=== PATIENT | male | born 1965 | race Caucasian/White ===

== ENCOUNTER 2025-01-20 05:59 | Day surgery (SDC) | payer OTHER ==
[~2025-01-20 05:59] MED LIST: ALPRAZolam 0.25 MG TAB PO PRN; ALPRAZolam 0.5 MG TAB PO PRN; HEPARIN SODIUM,PORCINE (1 ML) 2,500 UNIT in SODIUM CHLORIDE 0.9% 250 ML IRRIGATION PRN; HEPARIN SODIUM,PORCINE 10,000 UNIT in SODIUM CHLORIDE 0.9% 1,000 ML IRRIGATION PRN; NITROGLYCERIN SL TABS 0.4 MG TAB SUBLINGUAL PRN
[2025-01-20] MEDS: SODIUM CHLORIDE 0.9% 1,000 ML in EMPTY BAG 1 BAG IV SCH ×2 (06:38→16:29)
[2025-01-20] MEDS: IV FLUID CONTINUATION 1,000 ML IV ONE ×2 (06:41→16:15)
[2025-01-20] MEDS: ASPIRIN 325 MG TAB PO ONE (06:45)
[2025-01-20] MEDS: ATORVASTATIN 80 MG TAB PO ONE (06:48)
[2025-01-20] MEDS: HEPARIN SODIUM,PORCINE 10,000 UNIT in SODIUM CHLORIDE 0.9% 1,000 ML IRRIGATION ONE (07:35)
[2025-01-20] MEDS: HEPARIN SODIUM,PORCINE (1 ML) 2,500 UNIT in SODIUM CHLORIDE 0.9% 250 ML IRRIGATION ONE (07:35)
[2025-01-20] MEDS: MIDAZOLAM 2 MG/2 ML VIAL IVP ONE ×2 (07:46)
[2025-01-20] MEDS: LIDOCAINE 1% INJ 10MG/ML (20 ML MDV) SQ ONE (07:48)
[2025-01-20] MEDS: HEPARIN SODIUM 1,000 UN/ML (10ML VL) IVP ONE (07:55)
[2025-01-20] MEDS: NITROGLYCERIN 1000MCG/10ML SYRINGE INTRACORON ONE ×2 (07:58→08:42)
[2025-01-20] MEDS: TICAGRELOR 90 MG TAB PO ONE (08:22)
[2025-01-20] MEDS: IOPAMIDOL-370 100ML BTL INJ ONE ×2 (08:32→08:47)
[2025-01-20] MEDS ORDERED: ATORVASTATIN 80 MG TAB PO STA (08:58)
[2025-01-20] MEDS ORDERED: RX INFO: IV CONTRAST WAS GIVEN 1 EACH MISC MISCELLANE PRN (09:40)
[2025-01-20] MEDS ORDERED: NITROGLYCERIN SL TABS 0.4 MG TAB SUBLINGUAL PRN (09:40)
[2025-01-20] MEDS ORDERED: ZOLPIDEM 5 MG TAB PO PRN (09:40)
[2025-01-20] MEDS ORDERED: MAG HYDROX/AL HYDROX/SIMETH 30 ML CUP PO PRN (09:40)
[2025-01-20] MEDS ORDERED: ATROPINE SULFATE 0.1 MG/ML 10ML SYRINGE IV PRN (09:40)
--- NOTE | 2025-01-20 10:15 | CC ---
CARDIAC CATHETERIZATION REPORT PROCEDURES PERFORMED: 1. IFR assessment of proximal LAD and proximal and mid circumflex. 2. Intravascular ultrasound of right coronary artery. Adjunctive procedure before and after PCI. 3. PTCA and stenting of chronic distal RCA occlusion with 2 drug-eluting stents. PERFORMED BY: Dr. Deondre Joseph. ASSISTED BY: Dr. Bell. Moderate conscious sedation time was 59 minutes. Patient was administered Versed. Oxygen saturation, hemodynamics, and EKG were monitored closely. CLINICAL INFORMATION: Mr. Eder Orozco is a 59-year-old gentleman with a known history of CAD, who underwent stenting of the right coronary artery that was performed in 2007. He also has a family history of CAD, calcified coronary arteries, hypertension, and hyperlipidemia. I performed cardiac catheterization on him in November of this year and noted that the distal RCA had a chronic lesion of 95% with very sluggish flow with limited collaterals from the left system. There was moderate disease involving the proximal ostial LAD and also distal circumflex and to some extent in the proximal circumflex. I reviewed the angiograms with my colleagues and we felt that we should do IFR of the LAD and circumflex before intervention of the RCA. I called and talked to the patient about this in detail, explained to him the rationale, risks, benefits, and options. He understood all details and wished to proceed with the procedure. PROCEDURE NOTE: Under strict aseptic precautions and local anesthesia with a micropuncture needle technique, I gained access into the right femoral artery. Using a JL3.5 guide catheter of 6-Cypriot caliber and omni wire, I performed IFR of the LAD as well as circumflex after appropriate calibration and normalization. IFR of LAD was 0.94 and IFR of circumflex was 0.99. Multiple readings were obtained. I then turned my attention to the right coronary artery. I used a 0.75 left Amplatz guide catheter of 6-Cypriot caliber to cannulate the right coronary artery. I used a straight SuperCross with a long whisper wire and with this combination I crossed the lesion, wire was kept distally. The SuperCross catheter was advanced further and I exchanged it for a run- through long wire. Initial PTCA was performed with a 1.5 12 mm balloon. Multiple inflations were given in the distal RCA actually into the PDA branch. I then inflated with a 2.0 Mini Trek balloon and then with a 2.5 caliber NC Trek balloon. Multiple inflations were given from the previous stent in the proximal RCA all the way into the PDA branch. I then gave some nitroglycerin and performed intravascular ultrasound assessment. We noted that it was at least a 3.0 mm vessel and there was a dissection in the distal RCA extending into the PDA. I then deployed a 38 mm long 3.0 caliber Xience stent distally and another 38 mm long 3.0 Xience stent proximally telescoping into the previous stent. We then performed another intravascular ultrasound and then decided to give inflation with 3.5 balloon. A 3.5 NC Trek balloon of 20 mm length was used and multiple inflations were given inside the stents, both the new stent and the old stent. High-pressure inflation of the old stent was also given. Final ultrasound reveals excellent stent expansion and apposition. Angiographically, the result was excellent. The patient received 6500 units of heparin and ACT was 275. Following the procedure, it was 229. Additional 1000 units of heparin was given. Patient received 180 mg of Brilinta and will be on aspirin and Brilinta combination for 1 year without interruption. Excellent angiographic result without complication was achieved. Results were discussed and findings reviewed and images reviewed with the patient as well as his family members. He will be discharged tomorrow if stable and I will see him in the office on January 24. MMODL / IJN: [id number] /
[2025-01-20] MEDS: ATORVASTATIN 80 MG TAB PO STA (11:12)
[2025-01-20] MEDS: amLODIPine 5 MG TAB PO STA (11:40)
[2025-01-20] MEDS: ISOSORBIDE MONONITRATE ER 15 MG TAB PO SCH (11:55)
[2025-01-20] MEDS: ACETAMINOPHEN TAB 325 MG TAB PO PRN (16:37)
[2025-01-20] MEDS: FAMOTIDINE 20 MG TAB PO SCH (20:55)
[2025-01-20] MEDS: METOPROLOL TARTRATE 25 MG TAB PO SCH (20:56)
[2025-01-20] MEDS: EZETIMIBE 10 MG TAB PO SCH (20:56)
[2025-01-20] MEDS: ATORVASTATIN 40 MG TAB PO SCH (20:56)
[2025-01-20] MEDS: MULTIVITAMINS, THERA 1 EACH TAB PO SCH (20:56)
[2025-01-20] MEDS: TICAGRELOR 90 MG TAB PO SCH (20:56)
[2025-01-20] MEDS: LORATADINE 10 MG TAB PO SCH (20:56)
--- NOTE | 2025-01-21 08:03 | P.DS ---
Providers Attending physician: Venkatesh Burr Consults: 01/20/25 09:40 Consult Physician Routine Consulting Provider: [facility] Consult Reason/Comments: Post Interventional Patient Do you want consulting provider notified?: Already Contacted Primary care physician: Stated None Hospital Course: The patient is a 59-year-old gentleman who sees Dr. Burr on regular basis who underwent yesterday a heart catheterization and PCI of the RCA He was seen and evaluated this morning he is asymptomatic and hemodynamically stable with the physical examination is remarkable for regular rhythm with a soft systolic murmur and clear breathing sounds bilaterally. The right groin site appears to be slightly tender with mild oozing from the old dressing from yesterday. I am going to monitor that for the next few hours waiting for the results of the blood work at the same time with tentatively discharging the patient on dual antiplatelet therapy along with a statin. The patient will be following up with Dr. Burr in the office as an outpatient Plan - Discharge Summary Discharge Rx Participant: Yes New Discharge Prescriptions: New Ticagrelor [Brilinta] 90 mg PO BID #60 tab Nitroglycerin Sl Tabs [Nitrostat] 0.4 mg SUBLINGUAL Q5M PRN #100 tab PRN Reason: Chest Pain Continue Multivitamins, Thera [Multivitamin (formulary)] 1 tab PO HS Loratadine [Claritin] 10 mg PO HS Aspirin 81 mg PO HS Isosorbide Mononitrate [Isosorbide Mononitrate ER] 15 mg PO 1200 Ezetimibe [Zetia] 10 mg PO HS Rosuvastatin [Crestor] 20 mg PO HS Metoprolol Tartrate [Lopressor] 12.5 mg PO DAILY Famotidine 20 mg PO HS Metoprolol Tartrate 25 mg PO HS Discharge Medication List Aspirin 81 mg PO HS 11/25/24 [History] Ezetimibe [Zetia] 10 mg PO HS 11/25/24 [History] Famotidine 20 mg PO HS 11/25/24 [History] Isosorbide Mononitrate [Isosorbide Mononitrate ER] 15 mg PO 1200 11/25/24 [History] Loratadine [Claritin] 10 mg PO HS 11/25/24 [History] Multivitamins, Thera [Multivitamin (formulary)] 1 tab PO HS 11/25/24 [History] Rosuvastatin [Crestor] 20 mg PO HS 11/25/24 [History] Metoprolol Tartrate 25 mg PO HS 01/14/25 [History] Metoprolol Tartrate [Lopressor] 12.5 mg PO DAILY 01/14/25 [History] Nitroglycerin Sl Tabs [Nitrostat] 0.4 mg SUBLINGUAL Q5M PRN #100 tab 01/20/25 [Rx] Ticagrelor [Brilinta] 90 mg PO BID #60 tab 01/20/25 [Rx] Follow up Appointment(s)/Referral(s): Venkatesh Burr MD [STAFF PHYSICIAN] - 01/24/25 3:00 pm (PATIENT ALREADY HAS AN APPOINTMENT WITH DR. BURR ON JANUARY 24, 2025 AT 3:00. )
[2025-01-21 08:06] LABS: Basophils % (A) 0 %; Eosinophils # (A) 0.3 k/uL (0-0.7); Eosinophils % (A) 4 %; HCT 44.4 % (39.0-53.0); HGB 14.3 gm/dL (13.0-17.5); Lymphocytes # (A) 1.9 k/uL (1.0-4.8); Lymphocytes % (A) 23 %; MCH 28.6 pg (25.0-35.0); MCHC 32.2 g/dL (31.0-37.0); MCV 89.1 fL (80.0-100.0); Mean Platelet Volume 6.7; Monocytes # (A) 0.5 k/uL (0-1.0); Monocytes % (A) 6 %; Neutrophils # (A) 5.4 k/uL (1.3-7.7); Neutrophils % (A) 65 %; Platelet Count 267 k/uL (150-450); RBC 4.98 m/uL (4.30-5.90); RDW 12.2 % (11.5-15.5); WBC 8.3 k/uL (3.8-10.6)
[2025-01-21 08:22] VITALS: RESP 18
[2025-01-21 08:26] LABS: African American GFR (CKD) >90 (>60 ml/min/1.73 sqM); Anion Gap 7 mmol/L; Blood Urea Nitrogen 13 mg/dL (9-20); Calcium 9.2 mg/dL (8.4-10.2); Carbon Dioxide 27 mmol/L (22-30); Chloride 104 mmol/L (98-107); Glucose 115 mg/dL (74-99); Non-African American GFR(CKD) >90 (>60 ml/min/1.73 sqM); Potassium 4.4 mmol/L (3.5-5.1); Sodium 138 mmol/L (137-145)
[2025-01-21] MEDS: METOPROLOL TARTRATE 12.5 MG TAB PO SCH (09:19)
[2025-01-21] MEDS: ASPIRIN 81 MG PO SCH (09:19)
[2025-01-21 10:39] VITALS: BMI 27.2
[2025-01-21 11:59] VITALS: BP 127/89; PULSE 68; TEMP 97.9
== END 2025-01-21 12:39 | disposition home health service (06) ==
LOC: CATHCVL 05:59 → 3SCARD 08:48 → CATHCVL 01-21 12:39
PROVIDERS: ATTEND Internal Medicine Interventional Cardiology
DX: I25.10 Atherosclerotic heart disease of native coronary artery without angina pectoris (principal); I10 Essential (primary) hypertension; E78.5 Hyperlipidemia, unspecified; F17.210 Nicotine dependence, cigarettes, uncomplicated; Z95.5 Presence of coronary angioplasty implant and graft; Z79.82 Long term (current) use of aspirin; Z79.899 Other long term (current) drug therapy
CPT/HCPCS: 99152; 99153; 92978; 93799; 80048; 85025; C9600; C1760; C1769 ×3; C1725 ×4; C1894; C1753; C1887; J2250; J1644 ×3; J2003; Q9967; J2305; 93571